=== PATIENT | male | born 2000 | race African-American/Black ===

== ENCOUNTER 2020-11-12 11:22 | Outpatient (REF) | payer OTHER, SELFPAY | END 2020-11-12 11:23 | disposition home or self-care (01) | LOC: HO.LAB 11:22 | PROVIDERS: PCP Internal Medicine; Visit Provider Internal Medicine | DX: Z20.822 Contact with and (suspected) exposure to COVID-19 (principal) | CPT/HCPCS: C9803; U0003; U0005 ==

== ENCOUNTER 2021-01-06 10:26 | Emergency (ER) | payer OTHER, SELFPAY ==
[2021-01-06 11:10] VITALS: BP 162/89; PULSE 91; RESP 16; TEMP 36.4; O2SAT 99; BMI 30.5
--- NOTE | 2021-01-06 12:48 | ED.GENADULT ---
HPI - General Adult General Chief complaint: Wound/Laceration Stated complaint: anal tear Time Seen by Provider: 01/06/21 12:48 History of Present Illness HPI narrative: Patient complains of rectal pain starting yesterday after straining at stool, no bleeding no diarrhea no abdominal pain no nausea Related Data Previous Rx's Medication Instructions Recorded docusate sodium 100 mg capsule 100 mg PO BID #14 cap 01/06/21 (Colace) Allergies Allergy/AdvReac Type Severity Reaction Status Date / Time house dust mite AdvReac Difficulty Verified 01/06/21 11:16 Breathing Review of Systems Review of Systems: Positive for rectal pain Negatives are in fever O chills a dizziness or weakness no bleeding no diarrhea no constipation no abdominal pain no nausea no vomiting no melena no blood in stool no black or tarry stool Yes all other systems are reviewed and are negative PMFSH Past Medical History Source: nursing notes reviewed Medical History Sinusitis Social History Social History Advance Directives: No Advance Directives Information Provided: No Physical Exam Vital Signs: Vital Signs: Last Vital Signs Temp 97.5 F 01/06/21 11:10 Pulse 91 01/06/21 11:10 Resp 16 01/06/21 11:10 BP 162/89 H 01/06/21 11:10 Pulse Ox 99 01/06/21 11:10 Body Mass Index 30.5 General appearance no acute distress Anicteric no pallor The neck is supple The abdomen soft nontender The rectal exam was normal in appearance, there was discomfort when the internal rectal exam was done with some mild pain, there was no blood on the glove I did palpate any mass or hemorrhoid Course Course Course Narrative: Patient with rectal pain after stool starting yesterday but very improved the next day with no bleeding and no abnormality detected on my exam is discharged with recommendation of Sitz bath, stool softener for a couple of days and follow with surgeon if not better next week He is told he likely has a small rectal tear Discharge Plan Discharge Clinical Impression: Rectal tear Patient Disposition: Home, Self-Care Additional Instructions: It is possible you have a small rectal tear from straining at stool But on exam I did not see any abnormality If pain continues follow with surgeon Return to the ER any time any worse condition or any concerns Prescriptions: New docusate sodium [Colace] 100 mg capsule 100 mg PO BID Qty: 14 RF: 0 Referrals: Benjamin Bynum MD [Physician] - 2 days (Rectal tear)
== END 2021-01-06 13:02 | disposition home or self-care (01) ==
PROVIDERS: Emergency Provider Emergency Medicine; PCP Internal Medicine
DX: K62.81 Anal sphincter tear (healed) (nontraumatic) (old) (principal)
CPT/HCPCS: 99283